=== PATIENT | male | born 1960 | race Caucasian/White ===

== ENCOUNTER → 2018-01-19 | Emergency (ER) | payer OTHER, SELFPAY ==
[~2018-01-19] MED LIST: Amoxicillin/Potassium Clav 875 MG TAB ONE; Lidocaine 1% 20 ML MDV ONE; Triple Antibiotic Oint 1 GM Packet ONE
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
== END ==
LOC: MADERS 11:44
DX: S02.2XXB Fracture of nasal bones, initial encounter for open fracture (principal); Y00.XXXA Assault by blunt object, initial encounter
CPT/HCPCS: 12013; 70486; J2001